=== PATIENT | female | born 1975 | race Caucasian/White ===

== ENCOUNTER 2016-12-11 23:06 | Emergency (ER) | payer BC | END 2016-12-11 23:45 | disposition home or self-care (01) | LOC: ER 23:06 | DX: S93.492A Sprain of other ligament of left ankle, initial encounter (principal); F32.9 Major depressive disorder, single episode, unspecified; Z87.442 Personal history of urinary calculi; Z88.0 Allergy status to penicillin; X50.1XXA Overexertion from prolonged static or awkward postures, initial encounter; Y92.830 Public park as the place of occurrence of the external cause ==